=== PATIENT | female | born 1985 | race Caucasian/White ===

== ENCOUNTER 2018-09-20 11:51 | Emergency (ER) | payer MEDICARE, OTHER | END 2018-09-20 12:27 | disposition home or self-care (01) | LOC: NAV ERS 11:51 | DX: M26.601 Right temporomandibular joint disorder, unspecified (principal); Z79.899 Other long term (current) drug therapy; F41.0 Panic disorder [episodic paroxysmal anxiety]; F17.290 Nicotine dependence, other tobacco product, uncomplicated | CPT/HCPCS: 99283 ==

== ENCOUNTER 2018-12-27 21:01 | Emergency (ER) | payer MEDICARE, MEDICAID ==
--- NOTE | 2018-12-27 22:17 | RAD ---
EXAM: 4 views of the right knee HISTORY: Knee pain after fall COMPARISON: None FINDINGS: No knee effusion is seen. There is no evidence of acute fracture or dislocation. No signifi cant degenerative changes are seen. No soft tissue swelling is present. IMPRESSION: No evidence of acute osseous abnormality.
== END 2018-12-27 22:35 | disposition home or self-care (01) ==
LOC: NAV ERS 21:01
DX: S80.01XA Contusion of right knee, initial encounter (principal); F41.9 Anxiety disorder, unspecified; F17.210 Nicotine dependence, cigarettes, uncomplicated; Z79.899 Other long term (current) drug therapy; W19.XXXA Unspecified fall, initial encounter

== ENCOUNTER 2019-02-02 19:07 | Emergency (ER) | payer MEDICARE, MEDICAID ==
[2019-02-02] MEDS ORDERED: Ondansetron PF 4 MG/2 ML Vial ONE (19:37)
[2019-02-02] MEDS ORDERED: Sodium Chloride 0.9% 1,000 ML ONE (19:47)
[2019-02-02 20:03] LABS: ALT (SGPT) 11 U/L (8-55); AST (SGOT) 17 U/L (5-34); Albumin 3.7 g/dL (3.5-5.0); Alkaline Phosphatase 132 U/L (40-150); Anion Gap 14 mmol/L (10-20); BUN (Urea Nitrogen) 8 mg/dL (7.0-18.7); Bilirubin, Total 0.5 mg/dL (0.2-1.2); Calc. Creatinine Clearance 0 mL/min (70-130); Calcium 8.9 mg/dL (7.8-10.44); Carbon Dioxide 20 mmol/L (22-29); Chloride 103 mmol/L (98-107); Estimated GFR-MDRD 75; Globulin 4.1 g/dL (2.4-3.5); Glucose 120 mg/dL (70-105); Potassium 3.9 mmol/L (3.5-5.1); Protein, Total 7.8 g/dL (6.0-8.3); Sodium 133 mmol/L (136-145)
[2019-02-02] MEDS ORDERED: Ketorolac Tromethamine 30 MG/ML VIAL ONE (20:11)
[2019-02-02] MEDS ORDERED: Acetaminophen 500 MG TAB ONE (20:11)
[2019-02-02 20:20] LABS: #Lymphocytes 0.8 thou/uL (1.20-3.40); #Monocytes 0.3 thou/uL (0.11-0.59); #Neutrophils 6.4 thou/uL (1.40-6.50); %Basophils 0.6 % (0.0-1.0); %Eosinophils 0.1 % (0.0-10.0); %Lymphocytes 10.2 % (21.0-51.0); %Monocytes 4.3 % (0.0-10.0); %Neutrophils 84.9 % (42.0-75.0); Anisocytosis MODERATE=16-30 cells (100X) (0-5/hpf); Hemoglobin 8.8 g/dL (12.0-16.0); Hypochromia MODERATE=16-30 cells (100X) (0-5/hpf); MDiff Complete? YES; Mean Corpuscular HGB CONC 28.2 g/dL (32.0-36.0); Mean Corpuscular Hemoglobin 17.6 pg (27.0-31.0); Mean Corpuscular Volume 62.4 fL (78.0-98.0); Mean Platelet Volume 7.8 fL (7.4-10.4); Microcytosis MARKED = >30 cells (100X) (0-5/hpf); Platelet Count 256 thou/uL (130-400); Polychromasia SLIGHT = 2-3 cells (100X) (0-2/hpf); RBC Distribution Width 16.3 % (11.5-14.5); Red Blood Cell (RBC) Count 5.02 mill/uL (4.20-5.40); White Blood Cell (WBC) Count 7.5 thou/uL (4.8-10.8)
--- NOTE | 2019-02-02 20:21 | RAD ---
AP CHEST: HISTORY: Malaise. Flu symptoms. FINDINGS: The lungs appear clear of infiltrate. Heart and mediastinum are unremarkable. No evidence of effusi on. IMPRESSION: No evidence of acute process seen on portable examination. POS: [facility]
[2019-02-02 21:04] LABS: Bacteria/HPF None Seen HPF (None Seen); Bilirubin Small (Negative); Blood, Urine Negative (Negative); Clarity Clear (Clear); Glucose, Urine (Dipstick) Negative (Negative); Leukocyte Negative (Negative); Nitrite Negative (Negative); Protein, Urine (Dipstick) 30 mg/dL (Neg-Trace); RBC/HPF None Seen HPF (0-3); Urobilinogen > or = 8.0 mg/dL (Less than 2); WBC/HPF None Seen HPF (0-3)
== END 2019-02-02 21:14 | disposition home or self-care (01) ==
LOC: NAV ERS 19:07
DX: R50.9 Fever, unspecified (principal); R11.2 Nausea with vomiting, unspecified; M79.10 Myalgia, unspecified site; F41.9 Anxiety disorder, unspecified; F17.210 Nicotine dependence, cigarettes, uncomplicated; Z79.899 Other long term (current) drug therapy
CPT/HCPCS: 71045; 80053; 81003; 81015; 83605; 85025; 87804; 96361; 96372; 96374; J1885; J2405; J7050

== ENCOUNTER 2021-03-07 14:21 | Emergency (ER) | payer MEDICAID, MEDICARE, OTHER ==
[2021-03-07] MEDS ORDERED: Ventolin HFA Inhaler 60 PUFF INHALER ONE (15:03)
[2021-03-08 13:06] LABS: SARS-CoV-2 PCR by NAA Not Detected (NotDetected)
== END 2021-03-07 15:30 | disposition home or self-care (01) ==
LOC: NAV ERS 14:21
DX: J45.909 Unspecified asthma, uncomplicated (principal); J02.9 Acute pharyngitis, unspecified; B34.9 Viral infection, unspecified; Z20.822 Contact with and (suspected) exposure to COVID-19
CPT/HCPCS: 71045; 87081; 87430; U0003; U0005

== ENCOUNTER 2021-04-28 12:44 | Emergency (ER) | payer SELFPAY ==
[2021-04-28] MEDS ORDERED: HYDROcodone/Acetaminophen 5/325 mg Tablet ONE (13:20)
[2021-04-28] MEDS ORDERED: Dexamethasone 20 MG/5 ML VIAL ONE (13:21)
[2021-04-28] MEDS ORDERED: Ketorolac Tromethamine 60 MG/2 ML VIAL ONE (13:21)
[2021-04-28] MEDS ORDERED: Ondansetron ODT 4 MG TAB ONE (13:21)
== END 2021-04-28 13:50 | disposition home or self-care (01) ==
LOC: NAV ERS 12:44
DX: M54.41 Lumbago with sciatica, right side (principal); I10 Essential (primary) hypertension; F17.210 Nicotine dependence, cigarettes, uncomplicated
CPT/HCPCS: 96372; 99283; J1100; J1885; Q0162

== ENCOUNTER 2021-04-30 10:34 | Emergency (ER) | payer SELFPAY ==
[~2021-04-30 10:34] MED LIST: Iopamidol 370 76% 100 ML VIAL ONE
[2021-04-30] MEDS ORDERED: Sodium Chloride 0.9% 1,000 ML ONE (11:18)
[2021-04-30] MEDS ORDERED: Ketorolac Tromethamine 30 MG/ML VIAL ONE (11:20)
[2021-04-30] MEDS ORDERED: Morphine 4 MG/ML VIAL ONE ×2 (11:20→13:03)
[2021-04-30] MEDS ORDERED: Ondansetron PF 4 MG/2 ML Vial ONE (11:20)
[2021-04-30 11:22] LABS: Bilirubin Small (Negative); Blood, Urine Negative (Negative); Clarity Clear (Clear); Glucose, Urine (Dipstick) Negative (Negative); Ketone, Urine Negative (Negative); Leukocyte Negative (Negative); Nitrite Negative (Negative); Urobilinogen 0.2 mg/dL (Less than 2)
[2021-04-30 11:23] LABS: Protein, Urine (Dipstick) Trace mg/dL (Neg-Trace)
[2021-04-30 11:40] LABS: #Basophils 0.1 thou/uL (0.0-0.2); #Eosinphils 0.1 thou/uL (0.0-0.7); #Lymphocytes 3.2 thou/uL (1.20-3.40); #Monocytes 0.3 thou/uL (0.11-0.59); #Neutrophils 6.2 thou/uL (1.40-6.50); %Basophils 0.6 % (0.0-1.0); %Eosinophils 0.5 % (0.0-10.0); %Lymphocytes 32.6 % (21.0-51.0); %Monocytes 3.5 % (0.0-10.0); %Neutrophils 62.8 % (42.0-75.0); ALT (SGPT) 15 U/L (8-55); AST (SGOT) 13 U/L (5-34); Albumin 3.4 g/dL (3.5-5.0); Alkaline Phosphatase 89 U/L (40-110); Anion Gap 11 mmol/L (10-20); BUN (Urea Nitrogen) 13 mg/dL (7.0-18.7); Bilirubin, Total 0.3 mg/dL (0.2-1.2); Calc. Creatinine Clearance 0 mL/min (70-130); Calcium 8.8 mg/dL (7.8-10.44); Carbon Dioxide 24 mmol/L (22-29); Chloride 109 mmol/L (98-107); Globulin 3.8 g/dL (2.4-3.5); Glucose 87 mg/dL (70-105); Hemoglobin 10.3 g/dL (12.0-16.0); Mean Corpuscular HGB CONC 29.7 g/dL (32.0-36.0); Mean Corpuscular Hemoglobin 21.1 pg (27.0-31.0); Mean Corpuscular Volume 71.1 fL (78.0-98.0); Mean Platelet Volume 9.7 fL (7.4-10.4); Platelet Count 295 thou/uL (130-400); Potassium 4.2 mmol/L (3.5-5.1); Protein, Total 7.2 g/dL (6.0-8.3); RBC Distribution Width 16.3 % (11.5-14.5); Red Blood Cell (RBC) Count 4.86 mill/uL (4.20-5.40); Sodium 140 mmol/L (136-145); White Blood Cell (WBC) Count 9.9 thou/uL (4.8-10.8)
[2021-04-30 11:42] LABS: BHCG - Serum Negative (NEGATIVE); Pregs Control Bar Appear? YES (CONTROL BAR)
== END 2021-04-30 14:52 | disposition home or self-care (01) ==
LOC: NAV ERS 10:34
DX: M54.6 Pain in thoracic spine (principal); R07.89 Other chest pain; Z79.899 Other long term (current) drug therapy
CPT/HCPCS: 71046; 71275; 80053; 81003; 84484; 84703; 85025; 85379; 93005; 96374; 96375; 96376; J1885; J2270; J2405; J7050; Q9967

== ENCOUNTER 2022-08-26 15:41 | Emergency (ER) | payer OTHER | END 2022-08-26 17:03 | disposition home or self-care (01) | LOC: NAV ERS 15:41 | DX: M54.2 Cervicalgia (principal); R51.9 Headache, unspecified; R11.2 Nausea with vomiting, unspecified; Z87.891 Personal history of nicotine dependence | CPT/HCPCS: 99283 ==

== ENCOUNTER 2023-04-22 12:33 | Emergency (ER) | payer OTHER, SELFPAY ==
[2023-04-22] MEDS ORDERED: Ondansetron ODT 4 MG TAB ONE (13:22)
[2023-04-22] MEDS ORDERED: Naproxen 500 MG TAB ONE (13:22)
[2023-04-22] MEDS ORDERED: Boostrix 0.5 ML (Tdap) VIAL (>/=7 yrs of age) ONE (14:50)
== END 2023-04-22 15:10 | disposition home or self-care (01) ==
LOC: NAV ERS 12:33
DX: S63.92XA Sprain of unspecified part of left wrist and hand, initial encounter (principal); Z87.891 Personal history of nicotine dependence; Z23 Encounter for immunization; X50.0XXA Overexertion from strenuous movement or load, initial encounter
CPT/HCPCS: 90471; 90715; Q0162

== ENCOUNTER 2024-02-16 18:13 | Emergency (ER) | payer MEDICAID, MEDICARE, OTHER, SELFPAY ==
[2024-02-16 18:59] LABS: #Basophils 0.1 thou/uL (0.0-0.2); #Eosinphils 0.1 thou/uL (0.0-0.7); #Lymphocytes 1.8 thou/uL (1.20-3.40); #Monocytes 0.3 thou/uL (0.11-0.59); #Neutrophils 2.7 thou/uL (1.40-6.50); %Eosinophils 1.2 % (0.0-10.0); %Lymphocytes 36.8 % (21.0-51.0); %Monocytes 6.2 % (0.0-10.0); %Neutrophils 54.8 % (42.0-75.0); Hematocrit 32.8 % (36.0-47.0); Hemoglobin 9.4 g/dL (12.0-16.0); Mean Corpuscular HGB CONC 28.6 g/dL (32.0-36.0); Mean Corpuscular Hemoglobin 19.5 pg (27.0-31.0); Mean Corpuscular Volume 68.1 fl (78.0-98.0); Mean Platelet Volume 8.3 fL (7.4-10.4); Platelet Count 199 10x3/uL (130-400); RBC Distribution Width 15.2 % (11.5-14.5); Red Blood Cell (RBC) Count 4.81 mill/uL (4.20-5.40)
[2024-02-16] MEDS ORDERED: Ondansetron PF 4 MG/2 ML Vial ONE (19:01)
[2024-02-16] MEDS ORDERED: Pantoprazole 40 MG VIAL ONE (19:01)
[2024-02-16] MEDS ORDERED: Sodium Chloride 0.9% 1,000 ML ONE (19:02)
[2024-02-16] MEDS ORDERED: Famotidine/PF 20 mg/2ml Vial ONE (19:02)
[2024-02-16 19:12] LABS: ALT (SGPT) 12 U/L (8-55); AST (SGOT) 21 U/L (5-34); Albumin 3.6 g/dL (3.5-5.0); Alkaline Phosphatase 80 U/L (40-110); Anion Gap 14 mmol/L (10-20); BUN (Urea Nitrogen) 14 mg/dL (7.0-18.7); Bilirubin, Total 0.3 mg/dL (0.2-1.2); Calc. Creatinine Clearance 0 mL/min (70-130); Calcium 8.6 mg/dL (7.8-10.44); Carbon Dioxide 21 mmol/L (22-29); Chloride 106 mmol/L (98-107); Estimated GFR 89; Glucose 91 mg/dL (70-105); Lipase 38 U/L (8-78); Protein, Total 7.6 g/dL (6.0-8.3); Sodium 137 mmol/L (136-145); Troponin I Less than 0.010 ng/mL (< 0.028)
[2024-02-16 19:39] LABS: BHCG - Serum Negative (NEGATIVE); Pregs Control Bar Appear? YES (CONTROL BAR)
== END 2024-02-16 20:10 | disposition home or self-care (01) ==
LOC: NAV ERS 18:13
DX: K29.00 Acute gastritis without bleeding (principal); D64.9 Anemia, unspecified; R10.13 Epigastric pain; M32.9 Systemic lupus erythematosus, unspecified; Z87.891 Personal history of nicotine dependence
CPT/HCPCS: 80053; 83690; 84484; 84703; 85025; 96374; 96375; J2405; J2470; J3490; J7030

== ENCOUNTER 2024-03-02 18:46 | Emergency (ER) | payer MEDICARE, OTHER ==
[2024-03-02] MEDS ORDERED: Acetaminophen 500 MG TAB ONE (19:48)
[2024-03-02] MEDS ORDERED: Ketorolac Tromethamine 60 MG/2 ML VIAL ONE (19:49)
== END 2024-03-02 21:05 | disposition home or self-care (01) ==
LOC: NAV ERS 18:46
DX: S83.511A Sprain of anterior cruciate ligament of right knee, initial encounter (principal); Z87.891 Personal history of nicotine dependence; X50.1XXA Overexertion from prolonged static or awkward postures, initial encounter
CPT/HCPCS: 96372; 99283; J1885

== ENCOUNTER 2024-07-21 19:01 | Emergency (ER) | payer MEDICAID, MEDICARE, OTHER ==
[2024-07-21] MEDS ORDERED: Ibuprofen 800 MG TAB ONE (19:22)
== END 2024-07-21 19:40 | disposition home or self-care (01) ==
LOC: NAV ERS 19:01
DX: T22.211A Burn of second degree of right forearm, initial encounter (principal); T31.0 Burns involving less than 10% of body surface; Z87.891 Personal history of nicotine dependence; X10.1XXA Contact with hot food, initial encounter
CPT/HCPCS: 16020; 99283